=== PATIENT | female | born 1995 | race Two or more races ===

== ENCOUNTER 2018-08-21 04:47 | Outpatient (CLI) | payer OTHER | END 2018-08-22 13:42 | disposition home or self-care (01) | LOC: OBS/DEL 04:47 | DX: O21.8 Other vomiting complicating pregnancy (principal); Z34.03 Encounter for supervision of normal first pregnancy, third trimester ==

== ENCOUNTER 2018-08-31 18:48 | Inpatient (IN) | payer OTHER ==
[~2018-08-31] VITALS: Ht 152.4 cm; Wt 62.1 kg
[2018-08-31] MEDS ORDERED: PRENATAL TABLE1 EAC2 PO (21:20)
== END 2018-09-03 18:48 | disposition home or self-care (01) | DRG 807 ==
LOC: LDR 18:48 → OB/GYN 09-01 16:32
PROVIDERS: ADMIT Obstetrics & Gynecology
PROC: 4A1HXCZ Monitoring of Products of Conception, Cardiac Rate, External Approach (ICD-10-PCS; 2018-08-31)
PROC: 10E0XZZ Delivery of Products of Conception, External Approach (ICD-10-PCS; principal; 2018-09-01)
PROC: 3E033VJ Introduction of Other Hormone into Peripheral Vein, Percutaneous Approach (ICD-10-PCS; 2018-09-01)
PROC: 4A033R1 Measurement of Arterial Saturation, Peripheral, Percutaneous Approach (ICD-10-PCS; 2018-09-01)
DX: O80 Encounter for full-term uncomplicated delivery (principal); Z37.0 Single live birth; Z22.330 Carrier of Group B streptococcus; Z3A.38 38 weeks gestation of pregnancy

== ENCOUNTER 2020-11-21 03:15 | Outpatient (CLI) | payer OTHER ==
[~2020-11-21 03:15] MED LIST: PRENATAL TABLE1 EAC2 PO
== END 2020-11-21 09:08 | disposition home or self-care (01) ==
LOC: OBS/DEL 03:15
PROVIDERS: ATTEND Obstetrics & Gynecology
DX: O60.03 Preterm labor without delivery, third trimester (principal); Z3A.33 33 weeks gestation of pregnancy

== ENCOUNTER 2020-12-26 07:54 | Inpatient (IN) | payer OTHER ==
[~2020-12-26] VITALS: Ht 152.4 cm; Wt 69.4 kg
[2020-12-26] MEDS ORDERED: PRENATAL CAPLE1 EAC1 PO (08:34)
== END 2020-12-28 15:48 | disposition home or self-care (01) | DRG 807 ==
LOC: LDR 07:54 → OB/GYN 07:54
PROVIDERS: ADMIT Obstetrics & Gynecology; ATTEND Obstetrics & Gynecology
PROC: 10E0XZZ Delivery of Products of Conception, External Approach (ICD-10-PCS; principal; 2020-12-26)
PROC: 4A1HXFZ Monitoring of Products of Conception, Cardiac Rhythm, External Approach (ICD-10-PCS; 2020-12-26)
DX: O42.02 Full-term premature rupture of membranes, onset of labor within 24 hours of rupture (principal); Z37.0 Single live birth; Z3A.39 39 weeks gestation of pregnancy; Z20.822 Contact with and (suspected) exposure to COVID-19